=== PATIENT | male | born 1975 | race African-American/Black ===

== ENCOUNTER 2017-11-08 17:13 | Emergency (ER) | payer MEDICAID ==
[~2017-11-08] VITALS: Ht 180.3 cm; Wt 100.0 kg
[2017-11-08 19:19] LABS: BASOPHILS % 0.8 % (0.0-2.0); EOSINOPHILS % 2.4 % (0.0-5.0); HEMATOCRIT. 43.1 % (42.0-52.0); HEMOGLOBIN. 14.4 g/dL (14.0-18.0); LYMPHOCYTES % 39.2 % (20.0-50.0); MEAN CORPUSCULAR HEMOGLOBIN 28.2 pg (28.0-32.0); MEAN PLATELET VOLUME 9.1 fl (7.4-10.4); MONOCYTES % 6.1 % (2.0-8.0); NEUTROPHILS % 51.5 % (40.0-76.0); PLATELET 214 x1000/uL (130-400); RED BLOOD CELL COUNT 5.13 mill/uL (4.7-6.1); RED CELL DISTRIBUTION WIDTH 14.1 % (11.6-14.6)
[2017-11-08 19:22] LABS: CHLORIDE 106 mEq/L (98-107)
[2017-11-08 19:25] LABS: INR 1.1; PROTHROMBIN TIME 11.7 sec (9.4-11.6)
[2017-11-08 19:45] LABS: CLARITY URINE CLEAR (CLEAR); COLOR URINE YELLOW (YELLOW); KETONES URINE NEGATIVE (NEGATIVE); OCCULT BLOOD URINE NEGATIVE (NEGATIVE); PH URINE 5.5 (4.5-8.0); PROTEIN URINE TRACE (NEGATIVE); SPECIFIC GRAVITY URINE 1.028 (1.005-1.030)
[2017-11-08 19:46] LABS: LEUKOCYTE ESTERASE URINE NEGATIVE (NEGATIVE); NITRITE URINE NEGATIVE (NEGATIVE); UROBILINOGEN URINE 0.2 E.U./dL (0.2-1.0)
[2017-11-09] MEDS ORDERED: IBUPROFEN 600MG TABLET PO ONE (00:45)
[2017-11-09 01:50] VITALS: BP 130/67
== END 2017-11-09 01:55 | disposition home or self-care (01) ==
LOC: ER 17:13
DX: R10.9 Unspecified abdominal pain (principal); M79.1 Myalgia; F43.10 Post-traumatic stress disorder, unspecified
CPT/HCPCS: 36415; 80053; 81003; 83690; 85025; 85610; 99284; Z7610